=== PATIENT | female | born 1970 | race Caucasian/White ===

== ENCOUNTER → 2018-04-21 09:35 | Outpatient (CLI) | payer OTHER, SELFPAY ==
--- NOTE | 2018-04-21 09:45 | XR_ITS ---
XR knee LT 3V HISTORY: ITS.REASON: KNEE PAIN ORDERING PHYSICIAN: Carmelita Blank PATIENT AGE: 47 years COMPARISON: None FINDINGS: No fracture or dislocation. No lytic or blastic change. Normal mineralization. No significant arthritic changes evident. No other significant findings IMPRESSION: Negative Knee
--- NOTE | 2018-04-21 09:45 | XR_ITS ---
XR hip RT 2-3V w/pelvis HISTORY: ITS.REASON: HIP PAIN ORDERING PHYSICIAN: Carmelita Blank PATIENT AGE: 47 years COMPARISON: None FINDINGS: No fracture or dislocation is evident. No significant degenerative change. No lytic or blastic change. Unremarkable soft tissues. There is a small curvilinear density overlying the right aspect of the pelvis of questionable etiology possibly related to overlying garment artifact as a button artifact is noted just to the left of this region IMPRESSION: Negative hip
--- NOTE | 2018-04-21 09:45 | XR_ITS ---
XR knee RT 3V HISTORY: ITS.REASON: KNEE PAIN ORDERING PHYSICIAN: Carmelita Blank PATIENT AGE: 47 years COMPARISON: None FINDINGS: No fracture or dislocation. No lytic or blastic change. Normal mineralization. No significant arthritic changes evident. No other significant findings IMPRESSION: Negative Knee
--- NOTE | 2018-04-21 09:45 | XR_ITS ---
XR hip LT 2-3V w/pelvis HISTORY: ITS.REASON: HIP PAIN ORDERING PHYSICIAN: Carmelita Blank PATIENT AGE: 47 years COMPARISON: None FINDINGS: No fracture or dislocation is evident. No significant degenerative change. No lytic or blastic change. Unremarkable soft tissues IMPRESSION: Negative hip
== END ==
PROVIDERS: PCP Nurse Practitioner Family; Visit Provider Nurse Practitioner Family
DX: M25.551 Pain in right hip (principal); M25.552 Pain in left hip; M25.561 Pain in right knee; M25.562 Pain in left knee
CPT/HCPCS: 73502; 73562

== ENCOUNTER → 2019-06-16 08:45 | Outpatient (CLI) | payer OTHER, SELFPAY ==
--- NOTE | 2019-06-16 08:59 | XR_ITS ---
PROCEDURE: XR CHEST 2V CLINICAL HISTORY: chest pain COMPARISON: No exams were available for comparison FINDINGS: The cardiomediastinal silhouette and pulmonary vascularity are within normal limits. No lobar consolidation or collapse. There is a small area of increased density in the left perihilar region overlying the posterior aspect of the left 7th rib which may only be due to overlapping vessels. Small area of atelectasis or fibrosis is also consideration. Stability may be confirmed with follow-up No acute bony abnormalities. IMPRESSION: No definite acute finding. Please see above for detail Dictated by: Rashi Hendrix MD 06/16/2019 13:34 Electronically signed by Rashi Hendrix MD in [place] 06/16/2019 13:34
[2019-06-16 09:25] LABS: Basophils # 0.1 K/mm3 (0-0.2); Basophils % 1.2 % (0.1-2.0); Eosinophils # 0.2 K/mm3 (0.0-0.4); Eosinophils % 2.7 % (0.1-12.0); Hematocrit 47.1 % (37.0-47.0); Hemoglobin 15.1 g/dL (12.2-16.2); Lymphocytes # 1.7 K/mm3 (0.7-4.5); Mean Corpuscular HGB Conc 32.1 g/dL (31.8-35.4); Mean Corpuscular Volume 99.5 fl (81-99); Mean Platelet Volume 8.4 fl (7.4-10.4); Monocytes # 0.3 K/mm3 (0.1-1.0); Monocytes % 5.2 % (1.7-9.3); Neutrophils # 3.7 K/mm3 (1.8-7.8); Neutrophils % 62.9 % (37.0-80.0); Platelet Count 339 K/mm3 (142-424); Red Blood Count 4.73 M/mm3 (4.20-5.40)
[2019-06-16 09:53] LABS: Erythrocyte Sedimentation Rate 6 mm/hr (0-20)
[2019-06-16 10:00] LABS: Troponin I < 0.02 ng/ml (0.00-0.06)
--- NOTE | 2019-06-16 10:00 | CA_ITS ---
[facility] RADIOLOGICAL CONSULTATION Patient Name : Ny Medina X-RAY # : [id number] Physician: YASHIRA SMYTH AGE: 48Y : 1970 00:00:00 ( F ) Exam : CA ECHO DOPPLER COMPLETE ACC # : [id number] Study Date : 06/16/2019 10:13:00 Patient Class : O FINAL REPORT CLINICAL DATA: FINDINGS: TRANSCRIBED REPORT EXAM: Comprehensive 2D, Doppler, and color-flow Echocardiogram Food And Nutrition Professor: Radha Malloy RVT Ht: 5 ft 4 in Wt: 124lbs BSA: 1.60 BP: 130/74 mmHg Indications: Chest Pain,Smoker 2D Dimensions LVOT 1.95 cm (M/F) 1.5-2.5 M-Mode Dimensions RVDd 2.65 cm (0.9-2.6) LVDd 4.91 cm (3.5-5.7) LVDs 3.16 cm (3.5-5.7) IVSd 0.86 cm (0.6-1.1) PWd 0.47 cm (0.6-1.1) EF (Teich) 65.00% FS 35.60% EDV (Teich) 113.40 mL ESV (Teich) 39.70 mL LV Diastology E/A Ratio 1.49 Mitral Valve MV A Velocity 44.00 (40-130 cm/s) Electronically signed by : IMPRESSION: Dictated by at Transcribed by at
[2019-06-16 10:05] LABS: Anion Gap 11.3 mEq/L (5-15); Blood Urea Nitrogen 9 mg/dL (7-18); Calcium 9.6 mg/dL (8.5-10.1); Carbon Dioxide 30 mmol/L (21.0-32.0); Chloride 103 mmol/L (98-107); Creatinine,Serum 0.79 mg/dL (0.55-1.02); Estimated Glomerular Filt Rate 78 ml/min (>60); Free T4 (Free Thyroxine) 1.16 ng/dl (0.76-1.46); GFR (African American) 94 ML/MIN (>60); Glucose 84 mg/dL (74-106); Potassium 4.3 mmoL/L (3.5-5.1); Sodium 140 mmol/L (136-145); Thyroid Stimulating Hormone 2.09 uIU/ml (0.358-3.740)
== END ==
PROVIDERS: Visit Provider Urology
DX: R07.9 Chest pain, unspecified (principal)
CPT/HCPCS: 36415; 71046; 80048; 84439; 84443; 84484; 85025; 85651; 93306

== ENCOUNTER → 2020-07-04 07:06 | Outpatient (CLI) | payer OTHER, SELFPAY ==
[2020-07-04 08:11] LABS: Coronavirus 19 IgG Antibody Negative (Negative); Coronavirus 19 IgM Antibody Negative (Negative)
== END ==
PROVIDERS: Visit Provider Nurse Practitioner Family
DX: Z03.818 Encounter for observation for suspected exposure to other biological agents ruled out (principal)
CPT/HCPCS: 36415; 86328

== ENCOUNTER → 2020-11-14 07:51 | Outpatient (CLI) | payer OTHER, SELFPAY ==
[2020-11-14 08:40] LABS: Coronavirus 19 IgG Antibody Positive (Negative); Coronavirus 19 IgM Antibody Negative (Negative)
== END ==
PROVIDERS: Visit Provider Nurse Practitioner Family
DX: Z20.822 Contact with and (suspected) exposure to COVID-19 (principal)
CPT/HCPCS: 36415; 86328

== ENCOUNTER → 2021-07-16 09:55 | Outpatient (CLI) | payer OTHER, SELFPAY ==
[2021-07-16 10:24] LABS: Basophils # 0.1 K/mm3 (0-0.2); Basophils % 0.9 % (0.1-2.0); Eosinophils # 0.2 K/mm3 (0.0-0.4); Eosinophils % 2.5 % (0.1-12.0); Hematocrit 44.8 % (37.0-47.0); Hemoglobin 14.8 g/dL (12.2-16.2); Lymphocytes # 1.7 K/mm3 (0.7-4.5); Mean Corpuscular HGB Conc 33.2 g/dL (31.8-35.4); Mean Corpuscular Volume 96.4 fl (81-99); Mean Platelet Volume 8.2 fl (7.4-10.4); Monocytes # 0.3 K/mm3 (0.1-1.0); Monocytes % 3.4 % (1.7-9.3); Neutrophils # 5.2 K/mm3 (1.8-7.8); Neutrophils % 70.3 % (37.0-80.0); Platelet Count 361 K/mm3 (142-424); Red Blood Count 4.64 M/mm3 (4.20-5.40); Red Cell Distribution Width 13.7 % (11.5-17.5); White Blood Count 7.5 K/mm3 (4.8-10.8)
[2021-07-16 11:22] LABS: Chloride 102 mmol/L (98-107); Potassium 4.5 mmoL/L (3.5-5.1); Sodium 140 mmol/L (136-145)
[2021-07-16 11:23] LABS: Activated Partial Thrombo Time 28.8 seconds (22.8-30.6); INR 0.96 (0.9-1.1); Prothrombin Time 10.9 seconds (10.1-12.5)
[2021-07-16 11:24] LABS: Alanine Aminotransferase 9 U/L (12-78); Albumin Level 4.8 g/dl (3.5-5.0); Alkaline Phosphatase 96 U/L (38-126); Aspartate Amino Transferase 24 U/L (14-36); Bilirubin,Total 0.5 mg/dl (0.2-1.3); Blood Urea Nitrogen 11 mg/dl (7-17); Estimated Glomerular Filt Rate 89 ml/min (>60); GFR (African American) 108 ML/MIN (>60)
[2021-07-16 11:25] LABS: Albumin/Globulin Ratio 1.7 (1.1-1.8); Anion Gap 12.5 mEq/L (5-15); Calcium 9.8 mg/dl (8.4-10.2); Carbon Dioxide 30 mmol/L (22.0-30.0); Chol/HDL Ratio 2.7 (1-3.5); Cholesterol 221 mg/dl (140-200); Globulin 2.8 g/dL (1.3-3.2); Glucose 87 mg/dl (74-100); HDL Cholesterol 81 mg/dl (40-60); Total Protein,Serum 7.6 g/dl (6.3-8.2); Triglycerides 72 mg/dl (30-150); VLDL Cholesterol 14 mg/dL (0-40)
[2021-07-16 12:15] LABS: Erythrocyte Sedimentation Rate 15 mm/hr (0-20)
[2021-07-16 12:17] LABS: Free T4 (Free Thyroxine) 1.14 ng/dl (0.78-2.19)
[2021-07-16 12:18] LABS: 25-OH Vitamin D, Total 41.5 ng/mL (30-100)
[2021-07-16 12:40] LABS: Coronavirus 19 IgG Antibody Positive (Negative); Coronavirus 19 IgM Antibody Negative (Negative)
--- NOTE | 2021-07-16 16:11 | XR_ITS ---
PROCEDURE INFORMATION: Exam: XR Chest Exam date and time: 07/16/2021 4:11 PM Age: 50 years old Clinical indication: Shortness of breath TECHNIQUE: Imaging protocol: XR of the chest. Views: 2 views. COMPARISON: CR XR CHEST 2V 06/16/2019 8:58 AM FINDINGS: Lungs: Unremarkable. No consolidation. Pleural spaces: Unremarkable. No pleural effusion. No pneumothorax. Heart/Mediastinum: Unremarkable. No cardiomegaly. Bones/joints: Unremarkable. IMPRESSION: No acute findings.
--- NOTE | 2021-07-16 16:11 | XR_ITS ---
PROCEDURE INFORMATION: Exam: XR Right Hip Exam date and time: 07/16/2021 4:11 PM Age: 50 years old Clinical indication: Hip pain; Right hip; Additional info: Right hip pain TECHNIQUE: Imaging protocol: XR Right hip. Views: 2 or 3 views hip with pelvis when performed. COMPARISON: CR HIPCMRT XR hip RT 2-3V w/pelvis 04/21/2018 9:41 AM FINDINGS: Bones/joints: The hip joints are symmetric bilaterally. Minimal degenerative changes.There is no evidence of acute fracture.There is no evidence of malalignment or dislocation. Soft tissues: Unremarkable. IMPRESSION: 1. The hip joints are symmetric bilaterally. Minimal degenerative changes.. 2. .There is no evidence of acute fracture.There is no evidence of malalignment or dislocation. .
[2021-07-18 16:10] LABS: Protein C Antigen 126 % (60-150)
[2021-07-19 16:10] LABS: Factor VIII Activity 73 % (56-140); Protein S Antigen, Total 82 % (60-150)
== END ==
PROVIDERS: Nurse Practitioner Family; PCP Emergency Medicine; Visit Provider Emergency Medicine
DX: Z00.00 Encounter for general adult medical examination without abnormal findings (principal); R06.02 Shortness of breath; R53.83 Other fatigue; E87.6 Hypokalemia; E55.9 Vitamin D deficiency, unspecified; M25.551 Pain in right hip
CPT/HCPCS: 36415; 71046; 73502; 80053; 80061; 81241; 82306; 84439; 84443; 85025; 85240; 85302; 85305; 85610; 85651; 85730; 86328

== ENCOUNTER 2021-10-04 05:40 | Emergency (ER) | payer OTHER, SELFPAY ==
[2021-10-04 05:41] VITALS: BP 115/94; PULSE 79; RESP 17; TEMP 36.6; O2SAT 99; BMI 21.2; BMI 21.3
--- NOTE | 2021-10-04 05:46 | CT_ITS ---
PROCEDURE INFORMATION: Exam: CT Abdomen And Pelvis Without Contrast Exam date and time: 10/04/2021 5:46 AM Age: 50 years old Clinical indication: Abdominal pain; Flank; Left; Prior surgery; Surgery date: 6+ months; Surgery type: Hysterectomy; Additional info: Stone protocal pain left flank TECHNIQUE: Imaging protocol: Computed tomography of the abdomen and pelvis without contrast. Radiation optimization: All CT scans at this facility use at least one of these dose optimization techniques: automated exposure control; mA and/or kV adjustment per patient size (includes targeted exams where dose is matched to clinical indication); or iterative reconstruction. COMPARISON: CR XR HIP RT 2-3V W/PELVIS 07/16/2021 4:12 PM FINDINGS: Liver: Normal. No mass. Gallbladder and bile ducts: Normal. No calcified stones. No ductal dilation. Pancreas: Normal. No ductal dilation. Spleen: Normal. No splenomegaly. Adrenal glands: Normal. No mass. Kidneys and ureters: There is a 6 mm stone in the midportion the left ureter with moderate left-sided hydronephrosis and proximal hydroureter. 4 mm stone is seen in the upper pole system left. Stomach and bowel: Unremarkable. No obstruction. No mucosal thickening. Appendix: No evidence of appendicitis. Intraperitoneal space: Unremarkable. No free air. No significant fluid collection. Vasculature: Unremarkable. No abdominal aortic aneurysm. Lymph nodes: Unremarkable. No enlarged lymph nodes. Urinary bladder: Unremarkable as visualized. Reproductive: Unremarkable as visualized. Bones/joints: Unremarkable. No acute fracture. Soft tissues: Unremarkable. IMPRESSION: 6 mm stone in the proximal 1/3 of the left ureter with moderate left-sided hydronephrosis.
[2021-10-04 06:14] LABS: Basophils # 0.1 K/mm3 (0-0.2); Basophils % 1.9 % (0.1-2.0); Eosinophils # 0.2 K/mm3 (0.0-0.4); Hematocrit 45.9 % (37.0-47.0); Hemoglobin 14.9 g/dL (12.2-16.2); Lymphocytes # 1.9 K/mm3 (0.7-4.5); Lymphocytes % 24.1 % (10-50); Mean Corpuscular HGB Conc 32.4 g/dL (31.8-35.4); Mean Corpuscular Hemoglobin 31.5 pg (27.0-31.2); Mean Corpuscular Volume 97.3 fl (81-99); Mean Platelet Volume 8.7 fl (7.4-10.4); Monocytes # 0.4 K/mm3 (0.1-1.0); Monocytes % 5.1 % (1.7-9.3); Neutrophils # 5.1 K/mm3 (1.8-7.8); Neutrophils % 66.9 % (37.0-80.0); Platelet Count 384 K/mm3 (142-424); Red Blood Count 4.72 M/mm3 (4.20-5.40); Red Cell Distribution Width 13.3 % (11.5-17.5); White Blood Count 7.6 K/mm3 (4.8-10.8)
[2021-10-04 06:15] LABS: Chloride 100 mmol/L (98-107); Potassium 3.7 mmoL/L (3.5-5.1); Sodium 137 mmol/L (136-145)
[2021-10-04 06:17] LABS: Blood Urea Nitrogen 16 mg/dl (7-17); Creatinine Clearance Estimated 67 mL/min (50-200); Estimated Glomerular Filt Rate 67 ml/min (>60); GFR (African American) 81 ML/MIN (>60)
[2021-10-04 06:18] LABS: Alanine Aminotransferase 19 U/L (12-78); Albumin Level 4.9 g/dl (3.5-5.0); Albumin/Globulin Ratio 1.6 (1.1-1.8); Alkaline Phosphatase 94 U/L (38-126); Anion Gap 13.7 mEq/L (5-15); Aspartate Amino Transferase 29 U/L (14-36); Bilirubin,Total 0.6 mg/dl (0.2-1.3); Calcium 8.7 mg/dl (8.4-10.2); Carbon Dioxide 27 mmol/L (22.0-30.0); Globulin 3.1 g/dL (1.3-3.2); Glucose 124 mg/dl (74-100)
[2021-10-04 06:19] LABS: Microscopic, Urine URINE MICROSCOPIC (MICROSCOPIC)
[2021-10-04 06:20] LABS: Appearance,Urine CLOUDY (Clear); Bilirubin,Urine Negative (Negative); Blood, Urine 3+ (Negative); Color,Urine YELLOW (Yellow); Glucose,Urine (UA) Negative (Negative); Ketones,Urine Negative (Negative); Leukocyte Esterase,Urine TRACE (Negative); Nitrate,Urine Negative (Negative); PH,Urine 6.5 (5.0-8.5); Protein,Urine TRACE (Negative)
[2021-10-04 06:23] LABS: RBC,Urine TNTC #/hpf (0-3)
[2021-10-04 06:24] LABS: C-Reactive Protein 8.1 mg/L (0-4)
[2021-10-04 06:51] LABS: Erythrocyte Sedimentation Rate 18 mm/hr (0-20)
--- NOTE | 2021-10-04 07:12 | HMH.EDUROGF ---
ED Disposition Clinical Impression: Renal colic on left side Disposition: Home, Self-Care Condition on Discharge: Good Instructions: DI for Kidney Stones Additional Instructions: fluids and call urology for follow up Prescriptions: Ketorolac Tromethamine [Toradol 10mg tablet] 10 mg PO Q6HP PRN #10 tab MDD 40mg/day PRN Reason: Moderate To Severe Pain Transmission Status: P[facility] to [email or web address] Ondansetron [Zofran 4mg ODT] 4 mg PO Q6H PRN #30 tab PRN Reason: Nausea And Vomiting Transmission Status: Pending to [email or web address] Referrals: Riley Koroma MD [Primary Care Provider] - - Critical Care Critical Care Time: No Attestation: On 10/04/21, the high probability of a clinically significant, sudden or life threatening deterioration of the following system(s) required my full and direct attention, intervention and personal management. The time I documented below is in addition to time spent performing reported procedures but includes the following listed in this critical care notation. Medical Decision Making - Medical Records Medical records reviewed: Yes: I reviewed the patient's medical records. - Mike Inquiry Pt receiving controlled substance: No Vital Signs: 10/04/21 05:41 Temperature 97.9 F Temperature Source Oral Pulse Rate [Left Radial] 79 Respiratory Rate 17 Blood Pressure [Right Arm] 115/94 H Blood Pressure Mean [Right Arm] 101 Blood Pressure Position [Right Arm] Sitting 02 Sat by Pulse Oximetry 99 Oxygen Delivery Method Room Air - Lab Data Lab results reviewed: Yes: I reviewed the patient's lab results. Lab Results 10/04/21 05:52: WBC 7.6, RBC 4.72, Hgb 14.9, Hct 45.9, MCV 97.3, MCH 31.5 H, MCHC 32.4, RDW 13.3, Plt Count 384, MPV 8.7, Neut % (Auto) 66.9, Lymph % (Auto) 24.1, Bartholomew % (Auto) 5.1, Eos % (Auto) 2.0, Baso % (Auto) 1.9, Neut # (Auto) 5.1, Lymph # (Auto) 1.9, Bartholomew # (Auto) 0.4, Eos # (Auto) 0.2, Baso # (Auto) 0.1, ESR 18 10/04/21 05:52: Sodium 137, Potassium 3.7, Chloride 100, Carbon Dioxide 27, Anion Gap 13.7, BUN 16, Creatinine 0.90, Estimated Creat Clear 67, Estimated GFR 67, Est GFR ( Amer) 81, Glucose 124 H, Calcium 8.7, Total Bilirubin 0.6, AST 29, ALT 19, Alkaline Phosphatase 94, C-Reactive Protein 8.1 H, Total Protein 8.0, Albumin 4.9, Globulin 3.1, Albumin/Globulin Ratio 1.6 10/04/21 06:15: Urine Color Yellow, Urine Appearance Cloudy, Urine pH 6.5, Ur Specific [place] 1.020, Urine Protein Trace, Urine Glucose (UA) Negative, Urine Ketones Negative, Urine Blood 3+, Urine Nitrate Negative, Urine Bilirubin Negative, Urine Urobilinogen 1.0, Ur Leukocyte Esterase Trace, Urine RBC Tntc, Urine WBC 3-5 Result diagrams: 10/04/21 05:52 10/04/21 05:52 Orders (Tests/Meds): ED MEDICATIONS Generic Name Dose Route Start Last Admin Trade Name Freq PRN Reason Stop Dose Admin Lactated Ringer's 1,000 mls @ 999 mls/hr 10/04/21 06:00 10/04/21 06:01 Lactated Ringer's 1000 Ml Bag IV 10/04/21 07:00 999 mls/hr .Q1H1M LORI Administration Tamsulosin HCl 0.4 mg 10/04/21 21:00 Tamsulosin 0.4mg Capsule PO 11/03/21 20:59 HS LORI Discontinued Medications Generic Name Dose Route Start Last Admin Trade Name Freq PRN Reason Stop Dose Admin Sodium Chloride 1,000 mls @ 999 mls/hr 10/04/21 06:00 10/04/21 06:00 Sod Chlor 0.9% 1000ml Bag IV 10/04/21 07:00 Not Given .Q1H1M LORI Ketorolac Tromethamine 30 mg 10/04/21 05:51 10/04/21 06:00 Ketorolac 30mg/Ml Vial IV 10/04/21 05:52 30 mg ONCE ONE Administration Ondansetron HCl 4 mg 10/04/21 05:51 10/04/21 06:00 Ondansetron 4mg/2ml Vial IV 02/12/22 05:52 4 mg ONCE ONE Administration Tamsulosin HCl 0.4 mg 10/04/21 07:00 10/04/21 07:01 Tamsulosin 0.4mg Capsule PO 10/04/21 07:01 0.4 mg ONCE ONE Administration - CT Data CT Scan: Abdomen, Pelvis Time Received: 07:[address] Reviewed: Yes: I have viewed the radiologist's interpretation Prelimi
[2021-10-04 07:29] VITALS: BP 121/86; PULSE 75; RESP 18; TEMP 36.6; O2SAT 98
== END 2021-10-04 07:34 | disposition home or self-care (01) ==
PROVIDERS: Emergency Provider Emergency Medicine; PCP Emergency Medicine
DX: N23 Unspecified renal colic (principal); Z87.442 Personal history of urinary calculi; F17.200 Nicotine dependence, unspecified, uncomplicated
CPT/HCPCS: 74176; 80053; 81001; 85025; 85651; 86140; 96365; 96375; 99282; J2405

== ENCOUNTER → 2023-03-02 08:39 | Outpatient (CLI) | payer OTHER, SELFPAY ==
--- NOTE | 2023-03-02 | CA_ITS ---
APPROVED REPORT Exam: Exercise Treadmill Technologist: Franny Villalta, HR: 65 bpm BP: 123/78 mmHg Rhythm: NSR, FREQUENT PVC Medical History Medical History: Smoking Medications: MeLATONIN,,,,, Magnesium OXIDE,,,,, AZITHROMYCIN,,,,, ONdansetron,,,,, MethylpredNISOLONE,,,,, DexTROamphetamine-Amphetamine,,,,, Allergies: SULFA Cardiac Risk Factors: FHX of CAD, Smoking Stress Test Details Test: Jd HR Resting HR: 75 bpm Max Heart Rate (APMHR): 169 bpm Max HR Achieved: 184 bpm Target HR (85% APMHR): 144 bpm % of APMHR: 109 Recovery HR: 97 bpm HR response to stress: Normal HR response to stress BP Resting BP: 123.0/78 mmHg Max BP: 150/85 mmHg Recovery BP: 106.0/69.0 mmHg BP response to stress: Normal blood pressure response to stress. ECG Resting ECG: NSR, FREQUENT PVCs Stress ECG: NO CHANGE Arrhythmia: PVCs Recovery ECG: NO CHANGE Recovery Arrhythmia: PVCs Clinical Exercise duration: 09:47 min Highest Stage Achieved: Stage 4: 4.2 mph at 16% grade. Exercise capacity: 10.1 METs Overall Exercise Capacity for Age: Average Stress ECG Conclusion MAX HR: 184 % OF PM: 115 MAX BP: 150/85 METS: 10.1 THE PATIENT WAS ABLE TO EXERCISE FOR 9M, 47S ON JD PROTOCOL, ACHIEVING A TOTAL OF 10.1 METS. HE HAS AN AVERAGE EXERCISE CAPACITY COMPARED TO AGE AND SEX MATCHED PEERS. HE HAS A NORMAL HR AND BP RESPONSE TO EXERCISE. TEST STOPPED DUE TO: LEG FATIGUE. HE DENIED ANY CHEST PAIN. AT BASELINE, ECG DEMONSTRATES NORMAL SINUS RHYTHM, FREQUENT PVCS. NO SIGNIFICANT ST CHANGES ARE PRESENT AT BASELINE. AT PEAK STRESS, THERE WAS < 1MM ST DEPRESSION IN THE LATERAL LEADS, WHICH RESOLVED WITHIN 3 MINUTES OF RECOVERY. FREQUENT PVCS ARE PRESENT DURING STRESS AND AT RECOVERY. CONCLUSION POSSIBLE ISCHEMIA IS PRESENT ON ECG STRESS TEST FREQUENT PVCS ARE NOTED AT BASELINE AND DURING STRESS MYOVIEW IMAGING IS REPORTED SEPARATELY Test Summary REST . . . . . . . Standing REST . . . . . . . Sitting REST 03:03 0.0 0.0 75 . 123/ 78 . . Stage 1 01:00 10.0 1.7 96 . . . . Stage 1 02:00 10.0 1.7 110 . . . . Stage 1 03:00 10.0 1.7 105 . 130/ 78 . . Stage 2 01:00 12.0 2.5 125 . . . . Stage 2 02:00 12.0 2.5 132 . . . . Stage 2 03:00 12.0 2.5 149 . 144/ 80 . . Stage 3 01:00 14.0 3.4 162 . . . . Stage 3 02:00 14.0 3.4 152 . . . . Stage 3 . . . . . . . Myoview Injected Stage 3 03:00 14.0 3.4 173 . 150/ 85 . . Stage 4 00:47 16.0 4.2 49 . . . Stop exercise at 09:47 RECOVERY 01:00 0.0 0.0 154 . 140/ 70 . . RECOVERY 02:00 0.0 0.0 129 . 140/ 70 . . RECOVERY 03:00 0.0 0.0 119 . 111/ 72 . . RECOVERY 04:00 0.0 0.0 101 . 104/ 73 . . RECOVERY 05:00 0.0 0.0 103 . 106/ 66 . . RECOVERY 06:00 0.0 0.0 94 . 106/ 66 . . RECOVERY 07:00 0.0 0.0 93 . 106/ 66 . . RECOVERY 07:23 0.0 0.0 97 . 106/ 69 . . Electronically signed by : Duyen Warren, 03/06/2023 15:58:31
--- NOTE | 2023-03-02 08:42 | NM_ITS ---
APPROVED REPORT Exam: Nuclear Stress Test Indication: chest pain Patient Location: Outpatient Stress Tech: Franny Villalta [place] Tech:Victorina BennettOLIMPIA RT (R)(N)(M) Ht: 5 ft 4 in Wt: 124 lbs Bra Size: b HR: 65 bpm BP: 123/78 mmHg BSA: 1.60 m2 Rhythm: NSR TID: 1.34 BMI: 21.2 Procedure: Patient exercised on Jas protocol 9:47 minutes and sec, resting heart rate 65 bpm, resting blood pressure 123/78 mmHg, with exercise maximum heart rate achived was 184 bpm which is 115 % of the maximum predicted heart rate and blood pressure was 144/80 mmHg. Patient denied any complaint of chest pain. Patient has average exercise capacity, achieved 10.1 METs of workload on treadmill, the blood pressure response to exercise was normal. chest pain Cardiac Stress and Resting SPECT Images: Cardiac Stress and Resting SPECT images were obtained using technetium 99m Myoview 31.0 mCi stress and 9.57 mCi at rest. Resting and stress imaging in both supine and prone positions demonstrate no definite fixed or reversible perfusion defects. There is increased transient ischemic dilatation ratio (TID 1.34), suggestive of possible balanced ischemia or multivessel disease. Gated imaging demonstrates mild reduction in global ejection fraction. LVEF is calculated at 44%. Note that the ejection fraction may be inaccurate in the setting of frequent PVCs and should be correlated with other imaging modalities. Conclusion: Resting and stress imaging in both supine and prone positions demonstrate no definite fixed or reversible perfusion defects. There is increased transient ischemic dilatation ratio (TID 1.34), suggestive of possible balanced ischemia or multivessel disease. Gated imaging demonstrates mild reduction in global ejection fraction. LVEF is calculated at 44%. Note that the ejection fraction may be inaccurate in the setting of frequent PVCs and should be correlated with other imaging modalities. Electronically signed by : Duyen Warren, 03/06/2023 16:05:20
== END ==
PROVIDERS: PCP Emergency Medicine; Visit Provider Physician Assistant
DX: R07.9 Chest pain, unspecified (principal)
CPT/HCPCS: 78452; 93017; A9502

== ENCOUNTER → 2023-03-11 08:03 | Outpatient (CLI) | payer OTHER, SELFPAY ==
--- NOTE | 2023-03-11 08:27 | XR_ITS ---
FINAL REPORT CLINICAL HISTORY: atypical angina COMPARISON: 07/16/2021 FINDINGS: PA and lateral views of the chest are obtained. A comparison from 07/16/2021 was used. The cardiac and mediastinal silhouettes are within normal limits. The lungs are clear. There is no pleural effusion, pneumothorax, or acute osseous abnormality. IMPRESSION: No radiographic evidence of acute cardiac or pulmonary disease. Reviewed, Interpreted and Dictated by Elisa López MD Transcribed by Melo Collins Authenticated and . [facility]
[2023-03-11 08:37] LABS: Blood Urea Nitrogen 12 mg/dl (7-17); Estimated Glomerular Filt Rate 76 ml/min (>60); GFR (African American) 92 ML/MIN (>60)
[2023-03-11 08:41] VITALS: BP 102/50; PULSE 43; RESP 18; O2SAT 100
[2023-03-11 09:00] VITALS: BP 89/52; PULSE 44; RESP 16; O2SAT 99
[2023-03-11 09:15] VITALS: BP 90/53; PULSE 41; RESP 16; O2SAT 100
== END ==
LOC: RAD 08:03
PROVIDERS: PCP Emergency Medicine; Visit Provider Internal Medicine
DX: I20.8 Other forms of angina pectoris (principal); R94.31 Abnormal electrocardiogram [ECG] [EKG]; R94.39 Abnormal result of other cardiovascular function study; F17.200 Nicotine dependence, unspecified, uncomplicated
CPT/HCPCS: 36415; 71046; 75574; 82565; 84520; Q9967

== ENCOUNTER → 2023-03-12 08:01 | Outpatient (CLI) | payer OTHER, SELFPAY | PROVIDERS: PCP Emergency Medicine; Visit Provider Internal Medicine | DX: R94.31 Abnormal electrocardiogram [ECG] [EKG] (principal); R94.39 Abnormal result of other cardiovascular function study; I20.8 Other forms of angina pectoris; F17.200 Nicotine dependence, unspecified, uncomplicated | CPT/HCPCS: 94060; 94726; 94729 ==

== ENCOUNTER 2023-03-18 07:34 | Day surgery (SDC) | payer OTHER, SELFPAY ==
[2023-03-18] VITALS (16 sets, daily range): BP systolic 66–109; BP diastolic 43–60; PULSE 43–57; RESP 15–20; TEMP 36.1–36.6; O2SAT 96–99; BMI 21.2
--- NOTE | 2023-03-18 07:11 | IR_ITS ---
APPROVED REPORT Patient Location: Outpatient PROCEDURES Selective coronary angiogram Drug-eluting stent deployment to the proximal LAD INDICATION Angina pectoris, Abnormal stress test, Coronary artery disease, Cardiomyopathy ejection fraction 44% Informed consent was obtained prior to the procedure. COMPLICATIONS NONE Estimated Blood Loss: LESS THAN 10 ML TECHNIQUE One percent lidocaine used to anesthetize the right anterior aspect of the wrist. The right radial artery was accessed via the Seldinger technique. A 6 Luxembourgish sheath was placed in the right radial artery. 150 mg magnesium sulfate, 800 mcg of nitroglycerin, 1mg Lidocaine and 5000 U Heparin were given through the arterial sheath. The papa catheter was also used to perform selective coronary angiogram. At the end the diagnostic angiogram therapeutic heparin was administered giving a therapeutic ACT and the guide catheter was placed in left main artery followed by Choice PT extra-support wire. A 3 mm x 26 mm [place] frontier stent was deployed at 20 tiffanie reducing the severe stenosis to 0%. A 3.25 x 8 mm noncompliant balloon was then placed at 22 tiffanie in the midportion to further post dilate reducing the calcified stenosis to 0%. ANGÉLICA-3 flow was present before and after the procedure. At the end the procedure the apparatus was removed the sheath was removed good hemostasis was achieved using TR banding patient was transferred to the postop holding area in stable addition ANGIOGRAPHIC RESULTS The left main artery Normal The left anterior descending artery Has a proximal mostly eccentric 50 to 60% calcified stenosis with remaining vessel widely patent The circumflex artery Is a large-caliber codominant vessel with a proximal 20% stenosis and an additional proximal 20 to 30% stenosis The right coronary artery Is codominant and has mid vessel 10 to 20% smooth stenosis The HITCHCOCK ventriculogram reveals Not performed The left ventricular end-diastolic pressure Not measured IMPRESSION Severe proximal LAD disease Successful stenting the proximal ID severe disease reduced to 0% with 1 drug-eluting stent Mild to moderate disease as described above PLAN 1. Brilinta 90 twice daily plus aspirin 81 mg daily 2. LDL less than 55 to be achieved with high intensity statin 3. Risk factor modification 4. Avoidance of tobacco products 5. Cardiac rehabilitation Electronically signed by : Ludwig Aragon MD 03/18/2023 11:14:30
[2023-03-18 08:08] LABS: Basophils # 0.1 K/mm3 (0-0.2); Eosinophils # 0.2 K/mm3 (0.0-0.4); Eosinophils % 4.4 % (0.1-12.0); Hematocrit 46.5 % (37.0-47.0); Hemoglobin 14.6 g/dL (12.2-16.2); Lymphocytes # 1.4 K/mm3 (0.7-4.5); Lymphocytes % 29.5 % (10-50); Mean Corpuscular HGB Conc 31.5 g/dL (31.8-35.4); Mean Corpuscular Hemoglobin 29.6 pg (27.0-31.2); Mean Platelet Volume 8.4 fl (7.4-10.4); Monocytes # 0.3 K/mm3 (0.1-1.0); Monocytes % 5.4 % (1.7-9.3); Neutrophils # 2.8 K/mm3 (1.8-7.8); Neutrophils % 59.7 % (37.0-80.0); Platelet Count 314 K/mm3 (142-424); Red Blood Count 4.94 M/mm3 (4.20-5.40); Red Cell Distribution Width 13.3 % (11.5-17.5); White Blood Count 4.6 K/mm3 (4.8-10.8)
[2023-03-18 08:21] LABS: Anion Gap 12.3 mEq/L (5-15); Blood Urea Nitrogen 16 mg/dl (7-17); Carbon Dioxide 29 mmol/L (22.0-30.0); Chloride 105 mmol/L (98-107); Creatinine Clearance Estimated 74 mL/min (50-200); Estimated Glomerular Filt Rate 76 ml/min (>60); GFR (African American) 92 ML/MIN (>60); Glucose 93 mg/dl (74-100); Potassium 4.3 mmoL/L (3.5-5.1); Sodium 142 mmol/L (136-145)
[2023-03-18 10:13] LABS: CATHL Activated Clotting Time 306 SEC (74-125)
--- NOTE | 2023-03-18 11:14 | SUR.PHASEII ---
1110- microbiological laboratory technician called and notified of 66/49 blood pressure. Awaiting orders at this time.
--- NOTE | 2023-03-18 13:40 | HMH.PHACL ---
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
== END 2023-03-18 13:35 | disposition home or self-care (01) ==
PROVIDERS: PCP Emergency Medicine; Visit Provider Internal Medicine
DX: I25.118 Atherosclerotic heart disease of native coronary artery with other forms of angina pectoris (principal); I42.9 Cardiomyopathy, unspecified; Z79.899 Other long term (current) drug therapy; I77.1 Stricture of artery; F17.210 Nicotine dependence, cigarettes, uncomplicated; R94.39 Abnormal result of other cardiovascular function study
CPT/HCPCS: 80048; 85025; 85347; 92928; 93454; 99152; C1725; C1769; C1876; C9600; J1644; Q9967

== ENCOUNTER → 2023-06-04 07:10 | Outpatient (CLI) | payer OTHER, SELFPAY ==
[2023-06-04 07:59] LABS: Basophils % 0.7 % (0.1-2.0); Eosinophils # 0.1 K/mm3 (0.0-0.4); Eosinophils % 1.8 % (0.1-12.0); Hematocrit 44.3 % (37.0-47.0); Hemoglobin 14.9 g/dL (12.2-16.2); Lymphocytes # 1.1 K/mm3 (0.7-4.5); Lymphocytes % 20.7 % (10-50); Mean Corpuscular HGB Conc 33.6 g/dL (31.8-35.4); Mean Corpuscular Hemoglobin 32.2 pg (27.0-31.2); Mean Corpuscular Volume 95.9 fl (81-99); Mean Platelet Volume 8.5 fl (7.4-10.4); Monocytes # 0.3 K/mm3 (0.1-1.0); Monocytes % 6.1 % (1.7-9.3); Neutrophils # 3.6 K/mm3 (1.8-7.8); Neutrophils % 70.7 % (37.0-80.0); Platelet Count 278 K/mm3 (142-424); Red Blood Count 4.62 M/mm3 (4.20-5.40); Red Cell Distribution Width 13.6 % (11.5-17.5); White Blood Count 5.1 K/mm3 (4.8-10.8)
[2023-06-04 08:20] LABS: Chloride 101 mmol/L (98-107); Sodium 138 mmol/L (136-145)
[2023-06-04 08:21] LABS: Potassium 3.8 mmoL/L (3.5-5.1)
[2023-06-04 08:23] LABS: Alanine Aminotransferase 31 U/L (12-78); Albumin Level 4.6 g/dl (3.5-5.0); Albumin/Globulin Ratio 1.6 (1.1-1.8); Alkaline Phosphatase 99 U/L (38-126); Anion Gap 14.8 mEq/L (5-15); Aspartate Amino Transferase 32 U/L (14-36); Bilirubin,Total 1.6 mg/dl (0.2-1.3); Blood Urea Nitrogen 13 mg/dl (7-17); Calcium 9.4 mg/dl (8.4-10.2); Carbon Dioxide 26 mmol/L (22.0-30.0); Cholesterol 136 mg/dl (140-200); Estimated Glomerular Filt Rate 76 ml/min (>60); GFR (African American) 92 ML/MIN (>60); Globulin 2.8 g/dL (1.3-3.2); Glucose 91 mg/dl (74-100); Iron 107 ug/dL (37-170); Total Protein,Serum 7.4 g/dl (6.3-8.2); Triglycerides 50 mg/dl (30-150); VLDL Cholesterol 10 mg/dL (0-40)
[2023-06-04 08:24] LABS: Chol/HDL Ratio 2.1 (1-3.5); HDL Cholesterol 64 mg/dl (40-60); Magnesium 1.7 mg/dl (1.6-2.3)
[2023-06-04 08:34] LABS: Total Iron Binding Capacity 387 ug/dL (265-497)
[2023-06-04 08:35] LABS: Direct LDL Cholesterol 59.88 mg/dL (100-129)
[2023-06-04 09:31] LABS: Thyroid Stimulating Hormone 1.27 uIU/mL (0.465-4.68)
[2023-06-04 09:50] LABS: Vitamin B12 472 pg/mL (239-931)
[2023-06-04 10:07] LABS: Free T4 (Free Thyroxine) 1.46 ng/dl (0.78-2.19)
[2023-06-04 10:25] LABS: Ferritin 92.4 ng/ml (11.1-264)
[2023-06-04 14:16] LABS: 25-OH Vitamin D, Total 42.7 ng/mL (30-100)
== END ==
PROVIDERS: PCP Emergency Medicine; Visit Provider Emergency Medicine
DX: R53.83 Other fatigue (principal); K59.00 Constipation, unspecified; E03.9 Hypothyroidism, unspecified; Z79.899 Other long term (current) drug therapy
CPT/HCPCS: 36415; 80053; 80061; 82306; 82607; 82728; 83540; 83550; 83735; 84439; 84443; 85025

== ENCOUNTER → 2023-07-02 10:50 | Outpatient (CLI) | payer OTHER, SELFPAY ==
[2023-07-02 12:44] LABS: Bilirubin,Total 0.5 mg/dl (0.2-1.3)
== END ==
PROVIDERS: PCP Emergency Medicine; Visit Provider Physician Assistant
DX: R17 Unspecified jaundice (principal)
CPT/HCPCS: 36415; 82247

== ENCOUNTER 2023-11-15 10:54 | Outpatient (CLI) | payer OTHER, SELFPAY ==
[2023-11-15 11:36] LABS: Basophils # 0.1 K/mm3 (0-0.2); Basophils % 1.1 % (0.1-2.0); Eosinophils # 0.1 K/mm3 (0.0-0.4); Eosinophils % 1.2 % (0.1-12.0); Hematocrit 43.8 % (37.0-47.0); Lymphocytes # 1.4 K/mm3 (0.7-4.5); Lymphocytes % 24.4 % (10-50); Mean Corpuscular HGB Conc 31.8 g/dL (31.8-35.4); Mean Corpuscular Hemoglobin 31.7 pg (27.0-31.2); Mean Corpuscular Volume 99.4 fl (81-99); Mean Platelet Volume 8.9 fl (7.4-10.4); Monocytes # 0.3 K/mm3 (0.1-1.0); Monocytes % 4.9 % (1.7-9.3); Neutrophils # 3.8 K/mm3 (1.8-7.8); Neutrophils % 68.5 % (37.0-80.0); Platelet Count 276 K/mm3 (142-424); Red Blood Count 4.41 M/mm3 (4.20-5.40); Red Cell Distribution Width 13.7 % (11.5-17.5); White Blood Count 5.5 K/mm3 (4.8-10.8)
[2023-11-15 11:54] LABS: Chloride 106 mmol/L (98-107); Potassium 4.3 mmoL/L (3.5-5.1); Sodium 141 mmol/L (136-145)
[2023-11-15 11:56] LABS: Bilirubin,Unconjugated 0.2 mg/dL (0.0-1.1); Blood Urea Nitrogen 11 mg/dl (7-17); Estimated Glomerular Filt Rate 76 ml/min (>60); GFR (African American) 92 ML/MIN (>60)
[2023-11-15 11:57] LABS: Alanine Aminotransferase 40 U/L (12-78); Albumin Level 4.5 g/dl (3.5-5.0); Alkaline Phosphatase 87 U/L (38-126); Anion Gap 8.3 mEq/L (5-15); Aspartate Amino Transferase 45 U/L (14-36); Bilirubin,Direct 0.2 mg/dl (0.0-0.4); Bilirubin,Indirect 0.1 mg/dL (0.0-0.9); Bilirubin,Total 0.3 mg/dl (0.2-1.3); Calcium 9.8 mg/dl (8.4-10.2); Carbon Dioxide 31 mmol/L (22.0-30.0); Chol/HDL Ratio 1.9 (1-3.5); Cholesterol 154 mg/dl (140-200); Creatine Kinase 67 U/L (30-135); Glucose 99 mg/dl (74-100); HDL Cholesterol 79 mg/dl (40-60); Magnesium 2.1 mg/dl (1.6-2.3); Total Protein,Serum 6.8 g/dl (6.3-8.2); Triglycerides 57 mg/dl (30-150); VLDL Cholesterol 11 mg/dL (0-40)
[2023-11-15 12:08] LABS: Direct LDL Cholesterol 46.79 mg/dL (100-129)
[2023-11-15 12:14] LABS: Free T4 (Free Thyroxine) 1.23 ng/dl (0.78-2.19)
[2023-11-15 12:24] LABS: Troponin I < 0.01 ng/ml (0.00-0.034)
[2023-11-15 12:30] LABS: Thyroid Stimulating Hormone 1.13 uIU/mL (0.465-4.68)
--- NOTE | 2023-11-15 13:22 | CA_ITS ---
APPROVED REPORT EXAM: Comprehensive 2D, Doppler, and color-flow Echocardiogram Site Foreman: Radha Malloy RVT Ht: 5 ft 4 in Wt: 137lbs BSA: 1.67 BP: 104/72 mmHg Indications: PALPS,CAD,SMOKER,HTN,HLD 2D Dimensions LA Volume 32.70 mL LA Volume Index 19.58 mL/m2 (M/F) 16-34 M-Mode Dimensions RVDd 2.39 cm (0.9-2.6) LA Diam 3.23 cm (1.9-4.0) LVDd 5.00 cm (3.5-5.7) LVDs 3.00 cm (3.5-5.7) IVSd 0.79 cm (0.6-1.1) PWd 0.43 cm (0.6-1.1) EF (Teich) 70.40% FS 40.00% EDV (Teich) 118.20 mL TAPSE 1.79 (<1.7) ESV (Teich) 35.00 mL LV Diastology E Decel Time 150 (160-240 msec) E/A Ratio 0.7 Aortic Valve PATEL Index 2.03 cm2/m2 AoV Peak Noe. 120.0 (50-130 cm/s) AO Peak GR. 5.80 mmHg AO Mean GR. 2.70 (<5 mmHg) AO VTI 23.8 (18-25 cm) PATEL (VTI) 3.47 (2.5-4.5 cm2) Mitral Valve MV E Max Noe. 60.0 (40-130 cm/s) MV A Velocity 86.0 (40-130 cm/s) E/A Ratio 0.70 MV PHT 44.0 ms Pulmonary Valve PV Peak Velocity 57.0 (50-150 cm/s) Left Ventricle The left ventricle is normal size. The left ventricular systolic function is normal. The left ventricular ejection fraction is within the normal range. There is normal left ventricular wall thickness. There is normal LV segmental wall motion. The left ventricular diastolic function is normal. LVEF is 55%. Right Ventricle The right ventricle is normal size. The right ventricular systolic function is normal. Atria The left atrium size is normal. The right atrium size is normal. There is no Doppler evidence of interatrial shunt. Aortic Valve The aortic valve is normal in structure. There is no aortic valvular stenosis. No aortic regurgitation is present. Mitral Valve The mitral valve is normal in structure. No evidence of mitral valve stenosis. There is no mitral valve regurgitation noted. Tricuspid Valve The tricuspid valve leaflets are thin and pliable. Trace tricuspid regurgitation. There is insufficient TR jet to estimate RVSP. Pulmonic Valve The pulmonary valve is normal in structure. Trace pulmonic regurgitation. Great Vessels The aortic root is normal in size. The ascending aorta is not well-visualized. The IVC is dilated, collapses < 50% with respirophasic variation. The RA pressure is estimated at 15 mmHg. Pericardium There is no pericardial effusion. Other Information Study Quality: Fair Conclusion Normal biventricular systolic function. No significant valvular stenosis or regurgitation. Electronically signed by : Duyen Warren MD 11/17/2023 23:23:37
== END 2023-11-15 23:59 ==
PROVIDERS: PCP Physician Assistant; Visit Provider Internal Medicine
DX: R00.2 Palpitations (principal); I25.10 Atherosclerotic heart disease of native coronary artery without angina pectoris; I10 Essential (primary) hypertension; M79.602 Pain in left arm; E78.5 Hyperlipidemia, unspecified; F17.200 Nicotine dependence, unspecified, uncomplicated; Z79.899 Other long term (current) drug therapy
CPT/HCPCS: 36415; 80048; 80061; 80076; 82550; 83735; 84439; 84443; 84484; 85025; 93306

== ENCOUNTER 2023-11-22 11:43 | Outpatient (CLI) | payer OTHER, SELFPAY | END 2023-11-22 23:59 | LOC: RT 11:44 | PROVIDERS: PCP Physician Assistant; Visit Provider Physician Assistant | DX: R00.2 Palpitations (principal); I11.9 Hypertensive heart disease without heart failure; I25.118 Atherosclerotic heart disease of native coronary artery with other forms of angina pectoris; M79.602 Pain in left arm; E78.5 Hyperlipidemia, unspecified; F17.200 Nicotine dependence, unspecified, uncomplicated | CPT/HCPCS: 93225 ==

== ENCOUNTER 2024-02-25 08:24 | Outpatient (CLI) | payer OTHER, SELFPAY | END 2024-02-25 23:59 | disposition home or self-care (01) | LOC: LAB.DROPOF 02-26 10:57 | PROVIDERS: PCP Nurse Practitioner Family; Visit Provider Nurse Practitioner Family | DX: R30.0 Dysuria (principal); N39.0 Urinary tract infection, site not specified | CPT/HCPCS: 87086 ==

== ENCOUNTER 2024-10-13 07:33 | Outpatient (CLI) | payer OTHER, SELFPAY ==
[2024-10-13 07:50] LABS: Basophils # 0.1 K/mm3 (0-0.2); Basophils % 1.8 % (0.1-2.0); Eosinophils # 0.2 K/mm3 (0.0-0.4); Eosinophils % 4.2 % (0.1-12.0); Hematocrit 44.7 % (37.0-47.0); Hemoglobin 14.8 g/dL (12.2-16.2); Lymphocytes # 1.3 K/mm3 (0.7-4.5); Lymphocytes % 26.4 % (10-50); Mean Corpuscular HGB Conc 33.1 g/dL (31.8-35.4); Mean Corpuscular Hemoglobin 30.5 pg (27.0-31.2); Mean Corpuscular Volume 92.2 fl (81-99); Mean Platelet Volume 10.5 fl (7.4-10.4); Monocytes # 0.4 K/mm3 (0.1-1.0); Neutrophils % 60.4 % (37.0-80.0); Platelet Count 315 K/mm3 (142-424); Red Blood Count 4.85 M/mm3 (4.20-5.40); Red Cell Distribution Width 13.2 % (11.5-17.5)
[2024-10-13 08:23] LABS: 25-OH Vitamin D, Total 44.4 ng/mL (30-100); Free T4 (Free Thyroxine) 1.23 ng/dl (0.78-2.19)
[2024-10-13 08:41] LABS: Albumin Level 4.8 g/dl (3.5-5.0); Chloride 102 mmol/L (98-107); Potassium 4.2 mmoL/L (3.5-5.1); Sodium 142 mmol/L (136-145)
[2024-10-13 08:43] LABS: Bilirubin,Unconjugated 0.6 mg/dL (0.0-1.1); Blood Urea Nitrogen 15 mg/dl (7-17); Estimated Glomerular Filt Rate 75 ml/min (>60); GFR (African American) 91 ML/MIN (>60)
[2024-10-13 08:44] LABS: Alanine Aminotransferase 20 U/L (12-78); Alkaline Phosphatase 69 U/L (38-126); Anion Gap 12.2 mEq/L (5-15); Aspartate Amino Transferase 25 U/L (14-36); Bilirubin,Indirect 0.6 mg/dL (0.0-0.9); Bilirubin,Total 0.6 mg/dl (0.2-1.3); Calcium 9.6 mg/dl (8.4-10.2); Carbon Dioxide 32 mmol/L (22.0-30.0); Cholesterol 215 mg/dl (140-200); Glucose 93 mg/dl (74-100); Magnesium 1.8 mg/dl (1.6-2.3); Total Protein,Serum 7.2 g/dl (6.3-8.2); Triglycerides 52 mg/dl (30-150); VLDL Cholesterol 10 mg/dL (0-40)
[2024-10-13 08:45] LABS: HDL Cholesterol 71 mg/dl (40-60)
[2024-10-13 08:55] LABS: Direct LDL Cholesterol 129.92 mg/dL (100-129)
[2024-10-13 09:15] LABS: Thyroid Stimulating Hormone 1.02 uIU/mL (0.465-4.68)
== END 2024-10-13 23:59 | disposition home or self-care (01) ==
LOC: LAB 07:34
PROVIDERS: PCP Family Medicine; Visit Provider Physician Assistant
DX: R00.2 Palpitations (principal); E78.5 Hyperlipidemia, unspecified; I10 Essential (primary) hypertension; I25.10 Atherosclerotic heart disease of native coronary artery without angina pectoris; F17.200 Nicotine dependence, unspecified, uncomplicated; Z68.22 Body mass index [BMI] 22.0-22.9, adult
CPT/HCPCS: 36415; 80048; 80061; 80076; 82306; 83735; 84439; 84443; 85025

== ENCOUNTER 2025-03-28 14:23 | Outpatient (CLI) | payer OTHER, SELFPAY ==
--- OUTSIDE RECORDS SUMMARY | 2025-03-28 14:25 | XMS_ITS | Clinical Summary ---
Author Organization [facility] Address [address] [place] [address] Care Team Providers Care Business Analysis Consultant Name Role Phone Pcp, No Primary Care Provider Unavailabl e Social History Tobacco Use Types Packs/Day Years Used Date Smoking Tobacco: Never Assessed Comments Unknown Sex and Gender Information Value Date Recorded Sex Assigned at Not on file Legal Sex Female 8:27 PM EDT Gender Identity Not on file Sexual Orientation Not on file Plan of Treatment Health Maintenance Due Date Last Done Comments [facility]-Depression Screening 1970 [facility]-Infant/Child/Adol SDOH Screenings 1970 [facility]- SDOH Screenings 12/23/1989 [facility]-Adult SDOH Screenings 12/23/1989 [facility]-DTaP,Tdap,and Td Vaccine s (1 - Tdap) 12/23/1990 [facility]-Hepatitis B Vaccines (1 of 3 - 19+ 3-dose series) 12/23/1990 [facility]-Pap Smear 12/23/1992 [facility]-Cervical Cancer Screening 12/23/2001 [facility]-HPV/Cotest 12/23/2001 CT Colonography 12/23/2016 Colonoscopy 12/23/2016 FIT-DNA 12/23/2016 FIT 12/23/2016 FOBT 12/23/2016 Sigmoidoscopy 12/23/2016 [facility]-Colorectal Cancer Screening 12/23/2016 [facility]-Pneumococcal Vaccine: 50 + Years (1 of 1 - PCV) 12/23/2021 [facility]-Zoster Vaccines (1 of 2) 12/23/2021 [id number] Vaccine (1 - 20 24-25 season) 2024 [facility]-Influenza Vaccine (#1) 2025 HPV Vaccines Aged Out No longer eligi ble based on patient's age to complete this topic [facility]-HIB Vaccines Aged Out No longer e ligible based on patient's age to complete this topic [facility]-Hepatitis A Vaccines Aged Out No longer eligible based on patient's age to complete this topic [facility]-IPV Vaccines Aged Out No longer e ligible based on patient's age to complete this topic [facility]-Rotavirus Vaccines Aged Out No lo nger eligible based on patient's age to complete this topic [place] [address] [address] [place] [address] Care Teams Business Analysis Consultant Relationship Specialty Start Date End Date Pcp, [place] [address] PCP - General Family Medicine 03/11/23
[2025-03-28 15:25] LABS: Hematocrit 41.1 % (37.0-47.0); Hemoglobin 13.8 g/dL (12.2-16.2); Immature Granulocytes % 0.2 %; Mean Corpuscular HGB Conc 33.6 g/dL (31.8-35.4); Mean Corpuscular Hemoglobin 31.2 pg (27.0-31.2); Mean Corpuscular Volume 92.8 fl (81-99); Nucleated Red Blood Cells % 0 %; Platelet Count 321 K/mm3 (142-424); Red Blood Count 4.43 M/mm3 (4.20-5.40); Red Cell Distribution Width-SD 43.8 fL; White Blood Count 5.0 K/mm3 (4.8-10.8)
[2025-03-28 16:09] LABS: Albumin Level 4.4 g/dl (3.5-5.0); Chloride 100 mmol/L (98-107)
[2025-03-28 16:10] LABS: Potassium 4.1 mmoL/L (3.5-5.1); Sodium 137 mmol/L (136-145)
[2025-03-28 16:12] LABS: Alanine Aminotransferase 18 U/L (12-78); Anion Gap 9.1 mEq/L (5-15); Aspartate Amino Transferase 31 U/L (14-36); Bilirubin,Unconjugated 0.3 mg/dL (0.0-1.1); Blood Urea Nitrogen 11 mg/dl (7-17); Carbon Dioxide 32 mmol/L (22.0-30.0); Cholesterol 127 mg/dl (140-200); Creatinine,Serum 0.70 mg/dl (0.52-1.04); Estimated Glomerular Filt Rate 88 ml/min (>60); GFR (African American) 106 ML/MIN (>60); Total Protein,Serum 6.8 g/dl (6.3-8.2); Triglycerides 60 mg/dl (30-150)
[2025-03-28 16:13] LABS: Alkaline Phosphatase 92 U/L (38-126); Bilirubin,Direct 0.1 mg/dl (0.0-0.4); Bilirubin,Indirect 0.3 mg/dL (0.0-0.9); Bilirubin,Total 0.4 mg/dl (0.2-1.3); Calcium 9.5 mg/dl (8.4-10.2); Glucose 101 mg/dl (74-100); HDL Cholesterol 64 mg/dl (40-60); Magnesium 1.9 mg/dl (1.6-2.3)
[2025-03-28 16:28] LABS: Free T4 (Free Thyroxine) 1.39 ng/dl (0.78-2.19)
[2025-03-28 16:45] LABS: Thyroid Stimulating Hormone 1.01 uIU/mL (0.465-4.68)
== END 2025-03-28 23:59 | disposition home or self-care (01) ==
LOC: LAB 14:24
PROVIDERS: PCP Family Medicine; Visit Provider Physician Assistant
DX: I25.110 Atherosclerotic heart disease of native coronary artery with unstable angina pectoris (principal); F17.200 Nicotine dependence, unspecified, uncomplicated; R00.2 Palpitations; E78.5 Hyperlipidemia, unspecified; I10 Essential (primary) hypertension
CPT/HCPCS: 36415; 80048; 80061; 80076; 83735; 84439; 84443; 85025

== ENCOUNTER 2025-03-29 10:57 | Day surgery (SDC) | payer OTHER, SELFPAY ==
[2025-03-29] VITALS (10 sets, daily range): BP systolic 90–122; BP diastolic 55–78; PULSE 55–77; RESP 17–20; TEMP 36.6; O2SAT 95–98; BMI 22.6
--- NOTE | 2025-03-29 07:47 | IR_ITS ---
APPROVED REPORT Patient Location: Outpatient PROCEDURES Left heart catheterization Left ventriculogram Selective coronary angiogram INDICATION Known coronary artery disease, Worsening angina pectoris, Informed consent was obtained prior to the procedure. COMPLICATIONS None Estimated Blood Loss: Less than 10 mls TECHNIQUE One percent lidocaine used to anesthetize the right anterior aspect of the wrist. The right radial artery was accessed via the Seldinger technique. A 6 Swiss sheath was placed in the right radial artery. 2.5 mg of Verapamil, 800 mcg of nitroglycerin, 1mg Lidocaine and 5000 U Heparin were given through the arterial sheath. The JL3 catheter was also used to perform left heart catheterization, left ventriculogram and selective coronary angiogram. At the end of the procedure the sheath was removed good hemostasis was achieved using Traclet band, patient was transferred to the postop holding area in stable condition. ANGIOGRAPHIC RESULTS The left main artery Normal The left anterior descending artery Has a stent in the proximal segment which is widely patent free of in-stent restenosis with excellent proximal distal transitioning The circumflex artery Large widely patent normal The right coronary artery Large dominant with mid vessel 20% stenosis The HITCH[place]OCK ventriculogram reveals Normal 65% The left ventricular end-diastolic pressure 10 mmHg IMPRESSION Widely patent proximal LAD stent Mild dominant right coronary disease Normal ejection fraction Normal LVEDP PLAN 1. Continue medical management Electronically signed by : Ludwig Aragon MD 03/29/2025 13:57:14
[2025-03-29] MEDS: HEPARIN 1,000 UNITS/ML 10ML VIAL (CATH LAB) 5000 UNIT IV (13:54)
[2025-03-29] MEDS: NITROGLYCERIN 800MCG/8ML SYR (CATH LAB) 800 MCG IA (13:54)
[2025-03-29] MEDS: 0.9 % SODIUM CHLORIDE 500 ML 25 ML IV (13:54)
[2025-03-29] MEDS: VERAPAMIL 2.5MG/ML 2ML VIAL 2.5 MG IV (13:54)
[2025-03-29] MEDS: LIDOCAINE 1% 10ML MDV 10 ML IJ (13:54)
[2025-03-29] MEDS: HEPARIN 1,000 UNITS/500ML NS (CATH LAB) 3000 UNIT IV (13:54)
[2025-03-29] MEDS: IOPAMIDOL-370 (76%);100ML BOTTLE 40 ML IV (14:27)
== END 2025-03-29 16:23 | disposition home or self-care (01) ==
LOC: CATHLAB 10:58
PROVIDERS: PCP Family Medicine; Visit Provider Internal Medicine
PROC: 4A023N7 Measurement of Cardiac Sampling and Pressure, Left Heart, Percutaneous Approach (ICD-10-PCS; CPT 93452; principal; 2025-03-29 11:00)
DX: I25.110 Atherosclerotic heart disease of native coronary artery with unstable angina pectoris (principal); I10 Essential (primary) hypertension; E78.5 Hyperlipidemia, unspecified; Z95.5 Presence of coronary angioplasty implant and graft; Z79.82 Long term (current) use of aspirin; Z79.899 Other long term (current) drug therapy; F17.200 Nicotine dependence, unspecified, uncomplicated; Z82.49 Family history of ischemic heart disease and other diseases of the circulatory system
CPT/HCPCS: 93452; 93458; C1725; C1769; J1200; J1644; J2003; J7040; Q9967